=== PATIENT | male | born 1985 | race Caucasian/White ===

== ENCOUNTER 2019-10-08 12:56 | Outpatient (CLI) | payer OTHER ==
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
--- NOTE | 2019-10-08 15:47 | MRI ---
MRI CERVICAL SPINE WITHOUT CONTRAST: 10/08/19 INDICATIONS: Cervical radiculopathy. FINDINGS: Cervical vertebrae maintain normal height and alignment. Vertebral body signal is normal. Mild loss of disc space height at C4-5 and C5-6. C2-3: No abnormality. C3-4: Minimal disc bulge. No central canal or foraminal stenosis. C4-5: No significant abnormality. C5-6: There is annular fissure with broad based disc bulge flattening the thecal sac and effacing the anterior subarachnoid space. This is slightly more pronounced to the left of midline. No significant cord impingement or compression. Mild left foraminal encroachment. C6-7: Small annular fissure and broad based disc bulge flattens the thecal sac. The anterior subarach noid space is preserved. No central canal or foraminal stenosis seen. C7-T1: no significant abnormality. Cervical cord signal appears normal. IMPRESSION: Diffuse disc bulge at C5-6 and a mild diffuse disc bulge at C6-7 as described above. POS: MARIA ANTONIA
== END 2019-10-08 12:57 | disposition home or self-care (01) ==
LOC: TBSIIMAG 12:56
PROVIDERS: ATTEND Neurological Surgery
DX: S16.1XXA Strain of muscle, fascia and tendon at neck level, initial encounter (principal); M50.122 Cervical disc disorder at C5-C6 level with radiculopathy; S22.009A Unspecified fracture of unspecified thoracic vertebra, initial encounter for closed fracture; M47.814 Spondylosis without myelopathy or radiculopathy, thoracic region; M51.37 Other intervertebral disc degeneration, lumbosacral region; M51.27 Other intervertebral disc displacement, lumbosacral region
CPT/HCPCS: 72128; 72131; 72141

== ENCOUNTER 2020-12-28 13:29 | Outpatient (CLI) | payer OTHER | END 2020-12-28 13:30 | disposition home or self-care (01) | LOC: BICCT 13:29 | PROVIDERS: ATTEND Family Medicine | DX: R20.2 Paresthesia of skin (principal); M43.9 Deforming dorsopathy, unspecified | CPT/HCPCS: 72128 ==